=== PATIENT | female | born 1960 | race Caucasian/White ===

== ENCOUNTER 2022-12-16 14:41 | Outpatient (CLI) | payer OTHER | END 2022-12-16 14:42 | disposition home or self-care (01) | LOC: CSHMAMMO 14:41 | PROVIDERS: ATTEND Family Medicine | DX: Z12.31 Encounter for screening mammogram for malignant neoplasm of breast (principal) | CPT/HCPCS: 77063; 77067 ==

== ENCOUNTER 2024-06-21 13:47 | Outpatient (CLI) | payer OTHER | END 2024-06-21 13:48 | disposition home or self-care (01) | LOC: CSHMAMMO 13:47 | PROVIDERS: ATTEND Family Medicine | DX: N64.89 Other specified disorders of breast (principal) | CPT/HCPCS: G0279 ==